=== PATIENT | female | born 1980 | race Caucasian/White ===

== ENCOUNTER 2019-06-27 18:12 | Emergency (ER) | payer MEDICAID ==
[~2019-06-27] VITALS: Ht 172.7 cm; Wt 113.6 kg
[2019-06-27 18:16] VITALS: BP 132/80
--- NOTE | 2019-06-27 18:28 | NUR ---
contact information: fela Taylor [phone] parents are patient's conservators, paperwork on chart
--- NOTE | 2019-06-27 18:30 | NUR ---
Received report and assumed pt care. Mother and ER MD at bedside.
[2019-06-27] MEDS ORDERED: LURA60TA2 PO (18:49)
--- NOTE | 2019-06-27 18:56 | NUR ---
Pt refused dinner tray. Will hold tray aside.
[2019-06-27] MEDS ORDERED: LORazepam 1 MG tablet PO ONE (19:00)
[2019-06-27] MEDS ORDERED: diphenhydrAMINE 25mg capsule PO ONE (19:00)
[2019-06-27] MEDS ORDERED: OLANZapine 2.5MG tablet PO SCH (19:00)
[2019-06-27] MEDS ORDERED: CITA20TA28 PO (19:01)
[2019-06-27] MEDS ORDERED: LORA-269 PO (19:02)
[2019-06-27 19:18] LABS: URINE HCG NEGATIVE (NEG)
[2019-06-27] MEDS ORDERED: LORazepam 0.5 MG tablet PO PRN (19:20)
[2019-06-27 19:27] LABS: URINE AMPHETAMINE SCREEN NEGATIVE (Neg); URINE BARBITUATE SCREEN NEGATIVE (Neg); URINE BENZODIAZEPINES SCREEN NEGATIVE (Neg); URINE CANNABINOID SCREEN NEGATIVE (Neg); URINE COCAINE SCREEN NEGATIVE (Neg); URINE METHADONE SCREEN NEGATIVE (Neg); URINE OPIATE SCREEN NEGATIVE (Neg); URINE PHENCYCLIDINE SCREEN NEGATIVE (Neg)
[2019-06-27 19:33] LABS: BASOPHILS % (AUTO) 0.1 % (0-1); EOSINOPHILS % (AUTO) 0.2 % (0-6); HEMATOCRIT 40.6 % (35.0-45.0); HEMOGLOBIN 13.3 g/dl (12.0-16.0); LYMPHOCYTES # (AUTO) 0.7 X10'3 (1.1-4.8); LYMPHOCYTES % (AUTO) 5.8 % (21-51); MEAN CORPUSCULAR HGB CONC 32.7 g/dL (33.0-36.5); MEAN CORPUSCULAR VOLUME 85.6 FL (78-98); MEAN PLATELET VOLUME 9.2 FL (7.4-10.4); MONOCYTES # (AUTO) 0.6 X10'3 (0-0.9); MONOCYTES % (AUTO) 4.6 % (2-12); NEUTROPHILS # (AUTO) 11.3 X10'3 (1.8-7.7); NEUTROPHILS % (AUTO) 89.3 % (42-75); PLATELET COUNT 323 X10'3 (140-440); RED BLOOD COUNT 4.74 X10'6 (4.20-5.60); RED CELL DISTRIBUTION WIDTH 15.1 % (11.5-14.5); WHITE BLOOD COUNT 12.7 X10'3 (4.5-11.0)
[2019-06-27 19:44] LABS: ALANINE AMINOTRANSFERASE 22 U/L (12-78); ALBUMIN/GLOBULIN RATIO 1.1 (1.1-1.5); ALKALINE PHOSPHATASE 86 IU/L (46-116); ANION GAP 7 (8-16); ASPARTATE AMINO TRANSFERASE 19 U/L (10-37); BILIRUBIN,TOTAL 0.3 MG/DL (0.1-1.0); BLOOD UREA NITROGEN 19 MG/DL (7-18); BUN/CREATININE RATIO 17.4 (6.6-38.0); CALCIUM 8.7 MG/DL (8.5-10.1); CHLORIDE 105 MMOL/L (99-107); CREATININE 1.09 MG/DL (0.40-0.90); GLUCOSE 127 MG/DL (70-104); POTASSIUM 3.9 MMOL/L (3.5-5.1); SODIUM 141 MMOL/L (135-145); TOTAL CARBON DIOXIDE 29.1 MMOL/L (24-32); TOTAL PROTEIN 7.5 G/DL (6.4-8.2); eGFR 56 ML/MIN
[2019-06-27 19:53] LABS: ETHANOL < 0.010 GM/DL (0.0-0.010)
--- NOTE | 2019-06-27 20:45 | NUR ---
Pt screaming out, "fucker", and "shut up" several times. Dr. Jimenez contacted, no new orders.
--- NOTE | 2019-06-27 20:46 | NUR ---
informed Dr. young that primary nurse is requesting B-52 for agitated patient. security at bedside.
[2019-06-27] MEDS ORDERED: lurasidone 60mg tablet PO SCH (21:00)
--- NOTE | 2019-06-27 21:45 | NUR ---
Pt resting quietly, respirations normal, no s/s of distress.
--- NOTE | 2019-06-27 22:45 | NUR ---
Pt resting quietly, respirations normal, no s/s of distress.
--- NOTE | 2019-06-28 00:10 | NUR ---
Pt woke up asking for her mom. Sitter attempted to explain that it is midnight and pt threw an empty cup at staff's head. and security notified, new orders.
[2019-06-28] MEDS ORDERED: LORazepam 1 MG tablet PO ONE (00:20)
[2019-06-28] MEDS ORDERED: haloperidol lactate 5mg/ml inj IM ONE ×2 (00:30→00:50)
[2019-06-28] MEDS ORDERED: diphenhydrAMINE 50 mg/ml inj IM ONE ×2 (00:30→00:50)
--- NOTE | 2019-06-28 03:15 | NUR ---
Pt screaming "shut up fuckers". Security at bedside. Medication administered.
--- NOTE | 2019-06-28 03:48 | NUR ---
Pt resting quietly, respirations normal, no s/s of distress.
--- NOTE | 2019-06-28 05:51 | NUR ---
Pt resting quietly, respirations normal, no s/s of distress.
--- NOTE | 2019-06-28 06:40 | NUR ---
SENT PACKET TO [facility]
[2019-06-28] MEDS ORDERED: haloperidol lactate 5mg/ml inj IM PRN (07:30)
[2019-06-28] MEDS ORDERED: citalopram 20mg tablet PO SCH (08:00)
--- NOTE | 2019-06-28 08:15 | NUR ---
Patient is seen ambulating to the bathroom accompanied by mother. Patient is currently pleasant and cooperative with care. She is currently on her period and a sanitary napkin and new underwear were provided.
--- NOTE | 2019-06-28 09:23 | NUR ---
Patient is observed in bed on left side, audibly snoring, mother remains at bedside. No distress observed.
--- NOTE | 2019-06-28 10:42 | NUR ---
Duy, mixer crane operator from [facility] states he spoke to Dr. Mitchell and he recommends starting olanzepine 5mg BID along with PRN Ativan. He states that the patient's autism in conjunction with Covid and isolating, the patient needs medication adjustment to deal with the anxiety associated with being inside.
--- NOTE | 2019-06-28 11:05 | NUR ---
Spoke to mother regarding suggestions for care from Dr. Mitchell. Patient's mother states that she is worried and thinks that there is "something wrong" with the patient as she has been increasingly more aggitated and violent in the last 5 days. Reassured mother that patient is currently in a safe place and that she will not be discharged unless it is safe for both the mother and the patient.
[2019-06-28] MEDS ORDERED: OLANZapine 2.5MG tablet PO ONE (11:20)
[2019-06-28] MEDS ORDERED: LORazepam 0.5 MG tablet PO PRN (11:25)
[2019-06-28] MEDS: diphenhydrAMINE 50 mg/ml inj IM PRN ×2 (11:50→12:50)
--- NOTE | 2019-06-28 12:00 | NUR ---
Patient is being violent and threatening staff and mother stating that she would like to leave with her mom. She charged at staff. notified.
[2019-06-28] MEDS ORDERED: LORazepam 2 mg/ml vial ONE (12:36)
[2019-06-28] MEDS ORDERED: haloperidol lactate 5mg/ml inj ONE (12:36)
--- NOTE | 2019-06-28 13:32 | NUR ---
Margarita [facility], states she will not be keeping this patient on a mental health hold
--- NOTE | 2019-06-28 15:29 | NUR ---
Patient is currently resting in bed peacefully in the supine position, audibly snoring. No distress observed.
--- NOTE | 2019-06-28 16:36 | NUR ---
Patient's mother came to see the patient. Patient is still resting in bed peacefully. Informed mom we will call her once patient wakes up.
--- NOTE | 2019-06-28 17:30 | NUR ---
Patient continues to resting in bed on right side. No distress observed.
== END 2019-06-28 19:27 | disposition home or self-care (01) ==
LOC: ER 18:13
DX: F41.9 Anxiety disorder, unspecified (principal); R45.6 Violent behavior; F32.9 Major depressive disorder, single episode, unspecified; Z79.899 Other long term (current) drug therapy
CPT/HCPCS: 36415; 80053; 80305; 80320; 81025; 84443; 85025; 96372; 99285; J1200; J1630; J2060; Q0163

== ENCOUNTER 2020-03-17 13:46 | Emergency (ER) | payer MEDICAID ==
[~2020-03-17] VITALS: Ht 172.7 cm; Wt 81.8 kg
[~2020-03-17 13:46] MED LIST: CITA20TA28 PO; LORA-269 PO; LURA60TA PO
--- NOTE | 2020-03-17 14:51 | NUR ---
SITTING OUTSIDE ROOM WHILE TECHS GO IN TO CHANGE PT INTO GREEN SCRUBS AND INVENTORY HER BELONGINGS. EVERYTHING REMOVED FROM THE ROOM
--- NOTE | 2020-03-17 14:55 | NUR ---
ROOM STRIPPED, PATIENT PUT INTO GREEN SCRUBS AND SOCKS BELONGINGS LOGGED AND LOCKED UP IN OVERFLOW BED 27 - LOCKER #6
[2020-03-17 15:21] LABS: BASOPHILS % (AUTO) 0.5 % (0-1); EOSINOPHILS # (AUTO) 0.1 X10'3 (0-0.9); EOSINOPHILS % (AUTO) 1.2 % (0-6); HEMATOCRIT 41.1 % (35.0-45.0); HEMOGLOBIN 13.6 g/dl (12.0-16.0); LYMPHOCYTES # (AUTO) 0.8 X10'3 (1.1-4.8); LYMPHOCYTES % (AUTO) 11.7 % (21-51); MEAN CORPUSCULAR HGB CONC 33.1 g/dL (33.0-36.5); MEAN CORPUSCULAR VOLUME 84.4 FL (78-98); MEAN PLATELET VOLUME 9.9 FL (7.4-10.4); MONOCYTES # (AUTO) 0.5 X10'3 (0-0.9); MONOCYTES % (AUTO) 6.7 % (2-12); NEUTROPHILS # (AUTO) 5.5 X10'3 (1.8-7.7); NEUTROPHILS % (AUTO) 79.9 % (42-75); PLATELET COUNT 256 X10'3 (140-440); RED BLOOD COUNT 4.87 X10'6 (4.20-5.60); RED CELL DISTRIBUTION WIDTH 15.5 % (11.5-14.5); WHITE BLOOD COUNT 6.9 X10'3 (4.5-11.0)
[2020-03-17] MEDS ORDERED: DIVA500T9 PO (15:31)
[2020-03-17] MEDS ORDERED: QUET100T33 PO (15:31)
[2020-03-17] MEDS ORDERED: LORA-269 PO (15:31)
[2020-03-17] MEDS ORDERED: QUET25TA34 PO (15:31)
[2020-03-17 15:36] LABS: ALANINE AMINOTRANSFERASE 34 U/L (12-78); ALBUMIN 3.7 G/DL (3.4-5.0); ALBUMIN/GLOBULIN RATIO 0.9 (1.1-1.5); ALKALINE PHOSPHATASE 63 IU/L (46-116); ANION GAP 12 (8-16); ASPARTATE AMINO TRANSFERASE 17 U/L (10-37); BILIRUBIN,TOTAL 0.3 MG/DL (0.1-1.0); BLOOD UREA NITROGEN 12 MG/DL (7-18); BUN/CREATININE RATIO 11.4 (6.6-38.0); CALCIUM 8.5 MG/DL (8.5-10.1); CHLORIDE 104 MMOL/L (99-107); CREATININE 1.05 MG/DL (0.40-0.90); ETHANOL < 0.010 GM/DL (0.0-0.010); GLUCOSE 131 MG/DL (70-104); POTASSIUM 3.3 MMOL/L (3.5-5.1); SODIUM 142 MMOL/L (135-145); TOTAL CARBON DIOXIDE 26.4 MMOL/L (24-32); TOTAL PROTEIN 7.6 G/DL (6.4-8.2); eGFR 58 ML/MIN
[2020-03-17] MEDS ORDERED: potassium Cl 20 mEq SR tablet PO ONE (16:25)
[2020-03-17] MEDS: LORazepam 1 MG tablet PO PRN (18:06)
--- NOTE | 2020-03-17 18:13 | NUR ---
PT GIVEN A GLASS OF WATER TO HELP WITH COLLECTING A URINE SPECIMEN. PT SITTING ON THE COMMODE AND THROWS HER WATER TO THE FLOOR SPLASHING ON THE RN. REMOVE COMMODE AND ADMIN ATIVAN AND KDUR. PT IS COOPERATIVE WITH TAKING HER MEDICATION WITH ENCOURAGEMENT FROM THE TECH.
[2020-03-17] MEDS: quetiapine 100mg tablet PO PRN (19:53)
[2020-03-17] MEDS: QUEtiapine 25mg tablet PO SCH (19:53)
[2020-03-17 21:01] LABS: CLARITY,URINE SLIGHTLY CLOUDY (Clear); COLOR,URINE YELLOW (Yellow); GLUCOSE, URINE NEGATIVE (Neg); KETONES,URINE >=80 mg/dl (Neg); LEUKOCYTE ESTERASE ,URINE MODERATE (Neg); NITRITES, URINE NEGATIVE (Neg); OCCULT BLOOD,URINE MODERATE (Neg); PROTEIN,URINE 30 mg/dl (Neg)
--- NOTE | 2020-03-17 21:07 | NUR ---
PT APPEARS TO BE MASTURBATING. SEVERAL ATTEMPTS AT REDIRECTION.
[2020-03-17 21:12] LABS: URINE AMPHETAMINE SCREEN NEGATIVE (Neg); URINE BARBITUATE SCREEN NEGATIVE (Neg); URINE BENZODIAZEPINES SCREEN NEGATIVE (Neg); URINE CANNABINOID SCREEN NEGATIVE (Neg); URINE COCAINE SCREEN NEGATIVE (Neg); URINE HCG NEGATIVE (NEG); URINE METHADONE SCREEN NEGATIVE (Neg); URINE OPIATE SCREEN NEGATIVE (Neg); URINE PHENCYCLIDINE SCREEN NEGATIVE (Neg)
[2020-03-17 21:18] LABS: UA COLLECTION TYPE VOIDED
[2020-03-17 21:19] LABS: WBC,URINE 30-50 /HPF (0-4)
[2020-03-17 21:20] LABS: BACTERIA,URINE FEW /HPF (Neg); MUCUS STRANDS FEW /LPF (Neg); SQUAMOUS EPITHELIAL CELL,UR MODERATE /LPF (FEW); WBC CLUMPS,URINE FEW /HPF (NEGATIVE)
--- NOTE | 2020-03-17 22:23 | NUR ---
PT RESTING IN BED, RESTING QUIETLY, NO S/S OF DISTRESS.
--- NOTE | 2020-03-17 23:46 | NUR ---
PT RESTING IN BED, RESTING QUIETLY, NO S/S OF DISTRESS.
--- NOTE | 2020-03-18 01:48 | NUR ---
PT RESTING IN BED, RESTING QUIETLY, NO S/S OF DISTRESS.
--- NOTE | 2020-03-18 02:22 | NUR ---
PATIENT'S PACKET WASSENT TO [facility] AT 0216.
--- NOTE | 2020-03-18 02:56 | NUR ---
PT RESTING IN BED, RESTING QUIETLY, NO S/S OF DISTRESS.
--- NOTE | 2020-03-18 04:37 | NUR ---
PT RESTING IN BED, RESTING QUIETLY, NO S/S OF DISTRESS.
--- NOTE | 2020-03-18 06:30 | NUR ---
PT MOVED FROM ED ROOM 14 TO ED OVERFLOW BED 23. PT CALM AND COOPERATIVE WITH STAFF. WILL CONT TO MONITOR.
[2020-03-18] MEDS: divalproex sod 250mg ER (24-hour) tablet PO SCH (08:00)
[2020-03-18] MEDS: QUEtiapine 25mg tablet PO SCH ×2 (08:00→20:32)
--- NOTE | 2020-03-18 08:00 | NUR ---
PT SITTING UP AND EATING BFAST. NO SIGNS OF DISTRESS OR DISCOMFORT NOTED. WILL CONT TO MONITOR.
--- NOTE | 2020-03-18 08:59 | NUR ---
PT RESTING COMFORTABLY IN BED WITH NO SIGNS OF DISTRESS OR DISCOMFORT NOTED. WILL CONT TO MONITOR.
--- NOTE | 2020-03-18 09:30 | NUR ---
ANGELICA FROM [facility] CALLING TO LET RN KNOW MED CLEARANCE IS MISSING ON PT. INFORMED DR. ALCAZAR, REQUESTING IT TO BE ADDED IN.
--- NOTE | 2020-03-18 09:45 | NUR ---
MED CLEARANCE SENT TO ANGELICA AT [facility]
--- NOTE | 2020-03-18 09:54 | NUR ---
PT RESTING COMFORTABLY; IS NOT DOING ANY SELF HARM OR SELF PLEASURING ACTS. WILL CONT TO MONITOR.
--- NOTE | 2020-03-18 11:09 | NUR ---
PT LAYING DOWN IN BED, RESTING WITH EYES CLOSED. BREATHING RATE IS NORMAL. NO SIGNS OF DISTRESS NOTED. WILL CONT TO MONITOR.
--- NOTE | 2020-03-18 12:21 | NUR ---
PT RESTING IN BED; IS NOT SHOWING SIGNS OF DISTRESS OR DISCOMFORT. WILL CONT TO MONITOR.
--- NOTE | 2020-03-18 13:05 | NUR ---
PT SITTING UP IN BED AND EATING LUNCH. DOES NOT LOOK TO BE IN ANY DISTRESS. WILL CONT TO MONITOR.
--- NOTE | 2020-03-18 15:09 | NUR ---
PT CONTINUES TO REST AND DOES NOT SEEM TO BE IN ANY DISTRESS OR DISCOMFORT. WILL CONT TO MONITOR.
--- NOTE | 2020-03-18 16:09 | NUR ---
PT CONTINUES TO REST CALMLY AND COOPERATIVELY IN BED. NO SIGNS OF DISTRESS NOTED. WILL CONT TO MONITOR.
--- NOTE | 2020-03-18 17:15 | NUR ---
PT IS RESTING IN BED AND HAS NO NEEDS AT THIS TIME. WILL CONTINUE TO MONITOR.
--- NOTE | 2020-03-18 19:00 | NUR ---
Pt resting quietly, respirations normal, no s/s of distress.
--- NOTE | 2020-03-18 20:00 | NUR ---
Pt resting quietly, respirations normal, no s/s of distress.
[2020-03-18] MEDS: quetiapine 100mg tablet PO PRN (20:32)
[2020-03-18] MEDS: LORazepam 1 MG tablet PO PRN (20:32)
--- NOTE | 2020-03-18 21:00 | NUR ---
Pt resting quietly, respirations normal, no s/s of distress.
--- NOTE | 2020-03-18 22:00 | NUR ---
Pt resting quietly, respirations normal, no s/s of distress.
--- NOTE | 2020-03-18 22:00 | NUR ---
Pt resting quietly, respirations normal, no s/s of distress.
--- NOTE | 2020-03-18 23:00 | NUR ---
Pt resting quietly, respirations normal, no s/s of distress.
--- NOTE | 2020-03-19 01:17 | NUR ---
Pt resting quietly, respirations normal, no s/s of distress.
[2020-03-19 06:06] VITALS: BP 115/71
--- NOTE | 2020-03-19 06:29 | NUR ---
Patient sleeping on her right side. No distress observed. Continue to monitor.
[2020-03-19] MEDS: QUEtiapine 25mg tablet PO SCH (08:44)
[2020-03-19] MEDS: divalproex sod 250mg ER (24-hour) tablet PO SCH (08:44)
== END 2020-03-19 14:49 | disposition home or self-care (01) ==
LOC: ER 13:46
DX: F91.9 Conduct disorder, unspecified (principal); F41.9 Anxiety disorder, unspecified; F32.9 Major depressive disorder, single episode, unspecified; Z79.899 Other long term (current) drug therapy
CPT/HCPCS: 36415; 71046; 80053; 80305; 80320; 81001; 81025; 85025; 87088; 99285

== ENCOUNTER 2021-05-14 14:30 | Emergency (ER) | payer MEDICAID ==
[~2021-05-14] VITALS: Ht 162.6 cm; Wt 65.9 kg
[~2021-05-14 14:30] MED LIST changes: -CITA20TA28 PO; +DIVA500T9 PO; -LURA60TA PO; +QUET100T34 PO; +QUET25TA36 PO
[2021-05-14] MEDS ORDERED: haloperidol lactate 5mg/ml inj IM ONE ×2 (16:05→17:00)
[2021-05-14] MEDS ORDERED: LORazepam 2 mg/ml vial IM ONE ×2 (16:05→17:00)
[2021-05-14] MEDS ORDERED: diphenhydrAMINE 50 mg/ml inj IM ONE (16:05)
[2021-05-14 16:59] LABS: BASOPHILS % (AUTO) 0.1 % (0-1); EOSINOPHILS % (AUTO) 0 % (0-6); HEMATOCRIT 39.4 % (35.0-45.0); LYMPHOCYTES # (AUTO) 0.6 X10'3 (1.1-4.8); LYMPHOCYTES % (AUTO) 5.1 % (21-51); MEAN CORPUSCULAR HEMOGLOBIN 29.2 PG (27.0-31.0); MEAN CORPUSCULAR VOLUME 88.4 FL (78-98); MEAN PLATELET VOLUME 9.1 FL (7.4-10.4); MONOCYTES # (AUTO) 0.7 X10'3 (0-0.9); MONOCYTES % (AUTO) 5.7 % (2-12); NEUTROPHILS # (AUTO) 11.4 X10'3 (1.8-7.7); NEUTROPHILS % (AUTO) 89.1 % (42-75); PLATELET COUNT 273 X10'3 (140-440); RED BLOOD COUNT 4.46 X10'6 (4.20-5.60); WHITE BLOOD COUNT 12.8 X10'3 (4.5-11.0)
--- NOTE | 2021-05-14 17:08 | NUR ---
PT WAS COOPERATIVE FOR LAB DRAW AND COVID SWAB. AFTERWARDS PT BECAME AGRESSIVE, PULLED THE COMPUTER KEYBOARD OFF THE STAND AND PROCEEDED TO THROUGH IT AGAINST THE GLASS DOORS AND BREAKING IT TO PIECES. DR FENG OBSERVED PT'S BEHAVIOR, NEW ORDERS FOR ADDITIONAL HALDOL AND BEHAVIORAL RESTRAINTS RECEIVED
[2021-05-14 17:16] LABS: ALANINE AMINOTRANSFERASE 19 U/L (12-78); ALBUMIN 3.6 G/DL (3.4-5.0); ALKALINE PHOSPHATASE 70 IU/L (46-116); ANION GAP 7 (8-16); ASPARTATE AMINO TRANSFERASE 15 U/L (10-37); BILIRUBIN,TOTAL 0.4 MG/DL (0.1-1.0); BLOOD UREA NITROGEN 17 MG/DL (7-18); BUN/CREATININE RATIO 18.1 (6.6-38.0); CALCIUM 8.8 MG/DL (8.5-10.1); CHLORIDE 107 MMOL/L (99-107); CREATININE 0.94 MG/DL (0.40-0.90); GLUCOSE 86 MG/DL (70-104); SODIUM 141 MMOL/L (135-145); TOTAL CARBON DIOXIDE 26.6 MMOL/L (24-32); TOTAL PROTEIN 7.1 G/DL (6.4-8.2); eGFR 66 ML/MIN
[2021-05-14 17:26] LABS: ETHANOL < 0.010 GM/DL (0.0-0.010)
--- NOTE | 2021-05-14 18:26 | NUR ---
PT TAKEN TO CT, RESTRAINTS IN PLACE, TECH ASSISTING. PT WILL HAVE 2 RESTRAINTS REMOVED UPON RETURN FROM CT
--- NOTE | 2021-05-14 18:52 | NUR ---
Assumed care Addendum: 05/14/21 at 1853 by [email or web address] Assumed care of patient from main Er. Pt answers Mona when asked her name but doesnt answer any other questions or respond when asked if she has any needs. Pt was given warm blankets and made comfortable and is resting in bed w her eyes closed. RR even and unlabored. Pt has bruising to her face and dried blood on her face on arrival to [facility]. CT results pending.
--- NOTE | 2021-05-14 18:58 | NUR ---
Pts restraints were removed upon arrival in EDOF.
--- NOTE | 2021-05-14 21:19 | NUR ---
Pt is laying in bed asleep rr even and unlabored
--- NOTE | 2021-05-14 22:34 | NUR ---
pt up to use the toilet, stares blankly at me and doesnt respond when asked questions. Pt cooperative following directions.
[2021-05-14 22:53] LABS: CLARITY,URINE CLOUDY (Clear); GLUCOSE, URINE NEGATIVE (Neg); KETONES,URINE 40 mg/dl (Neg); LEUKOCYTE ESTERASE ,URINE SMALL (Neg); NITRITES, URINE NEGATIVE (Neg); OCCULT BLOOD,URINE MODERATE (Neg); PROTEIN,URINE TRACE mg/dl (Neg); URINE HCG NEGATIVE (NEG); UROBILINOGEN,URINE 0.2 E.U/dL (0.2-1.0)
--- NOTE | 2021-05-14 22:54 | NUR ---
Pt sitting in bed eating.
[2021-05-14 22:55] LABS: UA COLLECTION TYPE CLN CATCH MIDSTREAM
[2021-05-14 22:56] LABS: COLOR,URINE DARK YELLOW (Yellow)
[2021-05-14 23:01] LABS: URINE AMPHETAMINE SCREEN NEGATIVE (Neg); URINE BARBITUATE SCREEN NEGATIVE (Neg); URINE BENZODIAZEPINES SCREEN NEGATIVE (Neg); URINE CANNABINOID SCREEN NEGATIVE (Neg); URINE COCAINE SCREEN NEGATIVE (Neg); URINE METHADONE SCREEN NEGATIVE (Neg); URINE OPIATE SCREEN NEGATIVE (Neg); URINE PHENCYCLIDINE SCREEN NEGATIVE (Neg)
[2021-05-14 23:08] LABS: BACTERIA,URINE 3+ /HPF (Neg); MUCUS STRANDS FEW /LPF (Neg); SQUAMOUS EPITHELIAL CELL,UR FEW /LPF (FEW); WBC,URINE TNTC /HPF (0-4)
[2021-05-14 23:09] LABS: CAL OXALATE CRYSTALS FEW /HPF (NEGATIVE)
--- NOTE | 2021-05-15 01:32 | NUR ---
Pt laying in bed sleeping appears to be resting comfortably.
--- NOTE | 2021-05-15 02:00 | NUR ---
PT IN BED SLEEPING. EVEN, UNLABORED BREATHING.
--- NOTE | 2021-05-15 05:08 | NUR ---
pt is sleeping rr 16 even and unlabored
--- NOTE | 2021-05-15 07:09 | NUR ---
pt appears to be sleeping. no s/s respiratory distress-equal and unlabored respirations.
--- NOTE | 2021-05-15 08:30 | NUR ---
pt sitting up in bed eating breakfast without incident or issue. pt refuses to speak with staff. when approached, pt looks at the speaker but does not engage in conversation or answer questions.
--- NOTE | 2021-05-15 08:42 | NUR ---
scmh spoke with family regarding inability to place pt in truck terminal manager care facility due to behaviors and known hx of combativeness. per scmh, family is hesitant to take pt back home to due pt combativeness towards herself and other family members.
--- NOTE | 2021-05-15 12:22 | NUR ---
pt sitting up eating lunch without issue.
--- NOTE | 2021-05-15 12:30 | NUR ---
limited general assessment completed due to pt refusing to allow staff to touch her. pt refusing to answer questions. completed as well as possible based off observations.
[2021-05-15] MEDS ORDERED: DIVA500T9 PO (12:58)
[2021-05-15] MEDS ORDERED: QUET-1 PO (12:58)
[2021-05-15] MEDS ORDERED: QUET25TA PO (12:58)
[2021-05-15] MEDS ORDERED: LORA-269 PO (12:59)
--- NOTE | 2021-05-15 13:00 | NUR ---
spoke with pt primary psychiatrist dr blackman who gave verbal review of pt current medications. med rec completed and updated.
[2021-05-15] MEDS ORDERED: QUEtiapine 25mg tablet PO PRN (13:15)
--- NOTE | 2021-05-15 13:26 | NUR ---
resting on back, no distress noted.
[2021-05-15] MEDS: divalproex sod 250mg ER (24-hour) tablet PO SCH (14:02)
--- NOTE | 2021-05-15 14:05 | NUR ---
pt took medication without issue. given juice at same time which seemed to help. pt then up to bathroom with encouragement, changed scrubs, and given warm wipes to clean her face with to remove some dried blood. pt was able to wipe off some dried blood but reports that it hurt to push/wipe. given remaining wipes for her to use later.
--- NOTE | 2021-05-15 15:52 | NUR ---
pt heard yelling to self and to others indirectly. po ativan pulled as a prn option and offered to pt with juice. pt refused and tipped/threw the side table towards this rn. security called. attempted to redirect pt as she repeatedly stated she wanted to go home. informed that proper behavior is required for consideration for discharge and not attacking self or others or throwing items. pt then threw the juice at this nurse and another juice out of the room. alisa de la cruz informed of pt behavior and verbal order received for ativan 2mg im, haldol 10mg im, and benadryl 50mg im. orders placed as received. pt rolled over on to side and allowed administration of im medications without issue. pt is now laying in bed awake without further behaviors.
[2021-05-15] MEDS ORDERED: haloperidol lactate 5mg/ml inj IM ONE (16:05)
[2021-05-15] MEDS ORDERED: LORazepam 2 mg/ml vial IM ONE (16:05)
[2021-05-15] MEDS ORDERED: diphenhydrAMINE 50 mg/ml inj IM ONE (16:05)
--- NOTE | 2021-05-15 17:34 | NUR ---
pt laying in bed without disturbances. appears to be sleeping. no s/s respiratory distress. respirations equal and unlabored
--- NOTE | 2021-05-15 19:00 | NUR ---
RECEIVED PATIENT ON THE UNIT ASLEEP BUT EASILY AROUSE. NO PHYSICAL COMPLAINT MADE. PATIENT IS BREATHING SPONTANOUSLY ON ROOM AIR. OBSERVATION ONGOING
[2021-05-15] MEDS: quetiapine 100mg tablet PO SCH (20:35)
--- NOTE | 2021-05-16 04:26 | NUR ---
Patient asleep but easily arouse. No obvious distress noted.observation ongoing.
--- NOTE | 2021-05-16 06:00 | NUR ---
PT. CARE ASSUMED FROM OFF GOING NURSE TERRI LEES. PT. VISIBLE LYING IN BED WITH EYES CLOSED RESTING QUIETLY. NOTED EVEN RISE AND FALL OF CHEST. WILL CONTINUE TO MONITOR FOR SAFETY.
[2021-05-16] MEDS: divalproex sod 250mg ER (24-hour) tablet PO SCH (08:10)
--- NOTE | 2021-05-16 08:14 | NUR ---
PT. SITTING ON THE EDGE OF BED EATING BREAKFAST.
--- NOTE | 2021-05-16 09:52 | NUR ---
THIS SUPERVISOR FISH BAIT PROCESSING SPOKE WITH KAYCEE DEL REAL (MOTHER) TO INFORM HER DAUGHTER'S DISCHARGE TO HOME TODAY. MOTHER STATES," I WAS TOLD PATIENT WASN'T COMING HOME DUE TO NOT HAVING A SAFETY PLAN IN PLACE". THIS SUPERVISOR FISH BAIT PROCESSING INFORMED THE MOTHER, THAT THE [facility] CLINICIAN AND DR. MORIN HAD SPOKEN THIS MORNING AND THE 5150 WAS RESCINDED ON 05/15/21. INFORMED THE MOTHER THAT PATIENT ISN'T CURRENTLY ON A HOLD AND HAS NO OTHER MEDICAL ISSUES FOR ADMISSION. MOTHER STATES SHE WILL CALL HER TEAM OF PEOPLE AND SOMEONE WILL CALL US BACK ,MOTHER THEN HUNG UP PHONE IN THIS SUPERVISOR FISH BAIT PROCESSING'S FACE.
--- NOTE | 2021-05-16 10:43 | NUR ---
SPOKE WITH POSSIBLE EXCEPTING FACILITY ([facility]) AT [facility]. PACKET FAXED TO [phone].
[2021-05-16] MEDS: LORazepam 1 MG tablet PO PRN ×2 (11:26→16:53)
--- NOTE | 2021-05-16 11:30 | NUR ---
PT. PRESENTS WITH INCREASED AGITATION YELLING OUT FOR PEOPLE TO SHUT UP. THIS GRADE SETTER OFFER ATIVAN 1 MG PO FOR INCREASED AGITATION. PT. REFUSED ORAL MEDICATION AND THREW HER JUICE BOX AT THIS GRADE SETTER. GRADE SETTER NOTIFIED CHARGE NURSE OF BX. AND REQUESTED IM MEDICATION FOR AGITATION. ORDER PLACED BY MD FOR ATIVAN 1MG, BENADRYL 25MG AND HALDOL 5 MG IM X1 DOSE.
[2021-05-16] MEDS ORDERED: haloperidol lactate 5mg/ml inj IM ONE ×2 (11:45→23:05)
[2021-05-16] MEDS ORDERED: LORazepam 2 mg/ml vial IM ONE ×2 (11:45→23:05)
[2021-05-16] MEDS ORDERED: diphenhydrAMINE 50 mg/ml inj IM ONE ×2 (11:45→23:05)
--- NOTE | 2021-05-16 12:25 | NUR ---
GRAIN DRIER OPERATOR NOTIFIED OF NEED FOR STANDBY ASSIST FOR MEDICATION ADMINISTRATION. PT. WAS COOPERATIVE WITH MEDICATION ADMINISTRATION. STAFF WILL CONTINUE TO MONITOR FOR SAFETY.
--- NOTE | 2021-05-16 13:05 | NUR ---
RECEIVED A CALL FROM [facility] TO OBTAIN MORE INFORMATION.
--- NOTE | 2021-05-16 13:45 | NUR ---
DR. GONSALES IN AT THIS TIME EXAMINE PATIENT NOSE. STATES PATIENT MIGHT HAVE AN OPEN FRACTURE. REQUEST STAFF TO CLEAN DRIED DRAINAGE FROM NOSE FOR BETTER EXAMINATION.
--- NOTE | 2021-05-16 14:50 | NUR ---
PT. NOSE CLEANED AND DRY DRAINAGE REMOVED FROM AREA. DR. WU IN AT THIS TIME TO EXAMINE PT. NOSE. WILL CONTINUE TO MONITOR FOR SAFETY.
[2021-05-16] MEDS ORDERED: amox tr/potassium clavulanate 875/125mg TAB PO ONE (14:55)
[2021-05-16] MEDS ORDERED: ondansetron 4mg rapidly disintigrating tab PO ONE ×2 (14:55→18:25)
[2021-05-16] MEDS ORDERED: TETanus/Pertussis (Acell)/Diphther VAC/PF (Tdap-Adult) 0.5ml syringe IMVAC ONE (14:55)
[2021-05-16] MEDS ORDERED: LIDOcaine/epinephrine/tetracaine TOPICAL sol 3 ML syringe TOP ONE (14:55)
--- NOTE | 2021-05-16 15:30 | NUR ---
LIDOCAINE SOLUTION APPLIED TO LACERATION ON NOSE, WILL NOTIFY DR. CONTRERAS IN 30 MINUTES FOR SUTURES TO BE PLACED.
--- NOTE | 2021-05-16 16:30 | NUR ---
PT. RECEIVED TDAP VACCINE IN LT. DELTOID .
[2021-05-16] MEDS ORDERED: ketamine 50 mg/ml 10ml vial IM ONE (18:25)
--- NOTE | 2021-05-16 19:45 | NUR ---
RECEIVED PATIENT ON THE UNIT IN NO OBVIOUS DISTRESS. NO PHYSICAL COMPLAINT MADE. PATIENT IS BREATHING SPONTANOUSLY ON ROOM AIR. BRUISES NOTED TO FACIAL AREA. PATIENT DENIES HAVING ANY SUICIDAL IDEATION OR HALLUCINATION AT THIS TIME.
[2021-05-16] MEDS: quetiapine 100mg tablet PO SCH (20:28)
--- NOTE | 2021-05-16 22:43 | NUR ---
PATIENT TRANSFER TO MAIN ED TO GET HER NOSE SUTURE. PATIENT WAS RESISTIVE, COMBATIVE WITH SECURITY. PATIENT WAS TRANSPORTED IN WHEELCHAIR.
--- NOTE | 2021-05-17 00:14 | NUR ---
PATIENT ARRIVED ON THE MAIN ED CALM AND COOPERATIVE.
--- NOTE | 2021-05-17 01:34 | NUR ---
Patient asleep in no obvious distress. observation ongoing
--- NOTE | 2021-05-17 05:07 | NUR ---
Patient asleep in no obvious distress. Observation ongoing
--- NOTE | 2021-05-17 06:00 | NUR ---
ASSUMED CARE FROM OFF GOING NURSE TERRI LEES. PT. VISIBLE ON THE UNIT RESTING QUIETLY WITH EYES CLOSED. NO DISTRESS NOTED.
[2021-05-17] MEDS: divalproex sod 250mg ER (24-hour) tablet PO SCH (08:00)
[2021-05-17] MEDS: amox tr/potassium clavulanate 500mg/125mg TAB PO SCH ×2 (08:30→17:46)
--- NOTE | 2021-05-17 09:50 | NUR ---
PACKET REFAXED TO [facility] WITH UPDATED INFORMATION ON SUTURE REMOVAL DATE. AWAITNG CALL BACK FROM FACILITY.
--- NOTE | 2021-05-17 10:35 | NUR ---
RECEIVED A CALL FROM ALBA LEES WITH [facility] REGARDING THE LACERATION TO THE PT. RIGHT HAND. THIS ANAESTHETIC TECHNICIAN INFORMED ALBA THAT LACERATION WAS NOT BLEEDING NOR HAD ANY DRAINAGE COMING FROM IT. RESTATED PER THE DOCTOR THAT LACERATION WAS OUTSIDE OF TIME FRAME FOR ANY SUTURES TO BE PLACED. PT. CURRENTLY ON ABX. AT THIS TIME. ALBA STATED SHE WILL REVIEW PATIENT CASE WITH FACILITY CLINICIANS AND WILL CALL BACK AFTERWARDS.
--- NOTE | 2021-05-17 11:29 | NUR ---
[facility] CLINICIAN AND PSYCH PA IN AT THIS TIME TO OBTAIN UPDATES IN REGARD TO PATIENT PLACEMENT STATUS. CLINICIAN STATES SHE IS STILL WAITNG TO HEAR FROM [facility] IN REGARDS TO ACCEPTANCE. CLINICIAN ALSO STATES IF NOT ACCEPTED AT [facility] THE PATIENT PACKET HAS BEEN SUBMITTED TO OTHER FACILITIES FOR REVIEW WELL. CLINICIAN AND PA SPOKE WITH [facility] DIRECTOR WELL TO UPDATE HIM ON PLACEMENT PLANNING. STAFF WAITNG CALL BACK FROM [facility].
--- NOTE | 2021-05-17 13:00 | NUR ---
PT. LYING IN BED ON HER RT.SIDE RESTING QUIETLY WITH EYES CLOSED. NO DISTRESS NOTED. STAFF WILL CONTINUE TO MONITOR FOR SAFETY.
[2021-05-17] MEDS ORDERED: quetiapine 100mg tablet PO PRN (16:30)
--- NOTE | 2021-05-17 17:21 | NUR ---
PT. AROUSE EASILY AND DRIFT BACK TO SLEEP. NOTED RISE AND FALL OF CHEST NO DISTRESS NOTED. STAFF WILL CONTINUE TO MONITOR FOR SAFETY.
--- NOTE | 2021-05-17 19:01 | NUR ---
RECEIVED PATIENT ON THE UNIT LYING IN BED. NO OBVIOUS DISTRESS. PATIENT IS BREATHING SPONTANOUSLY ON ROOM AIR. PATIENT IS ABIT ANXIOUS AND SPEAK MINIMAL. OBSERVATION ONGOING.
[2021-05-17] MEDS: quetiapine 100mg tablet PO SCH (20:23)
--- NOTE | 2021-05-18 02:50 | NUR ---
PATIENT ASLEEP IN NO OBVIOUS DISTRESS. OBSERVATION ONGOING
--- NOTE | 2021-05-18 05:58 | NUR ---
PATIENT ASLEEP BUT EASILY AROUSE. OBSERVATION ONGOING.
--- NOTE | 2021-05-18 06:00 | NUR ---
Patient received from nurse Terrell RN.
--- NOTE | 2021-05-18 06:00 | NUR ---
Patient received from YOANA Puente
[2021-05-18] MEDS: PALIPERIDONE 3 MG TAB.ER.24 PO SCH ×2 (08:00→09:15)
[2021-05-18] MEDS: divalproex sod 250mg ER (24-hour) tablet PO SCH (09:16)
[2021-05-18] MEDS: amox tr/potassium clavulanate 500mg/125mg TAB PO SCH ×2 (09:54→18:04)
--- NOTE | 2021-05-18 10:00 | NUR ---
Patient is resting in bed. Compliant with medication regimen. Voi Addendum: 05/18/21 at 1148 by [email or web address] Resting in bed. Voiced no complaints at this time.
--- NOTE | 2021-05-18 12:00 | NUR ---
Patient is sitting in bed eating lunch independently. Voiced no complaints at this time. Will continue to monitor and assist.
[2021-05-18] MEDS ORDERED: AMOX-580 PO (13:12)
--- NOTE | 2021-05-18 14:00 | NUR ---
Patient is sleeping in bed. Resp. even and non- labored. No s/s of discomfort at this time. Will continue to monior and assist as needed.
--- NOTE | 2021-05-18 16:00 | NUR ---
Patient is resting in bed quietly. Easy to rouse. No s/s of discomfort. Will continue to monitor and assist as needed.
--- NOTE | 2021-05-18 18:16 | NUR ---
Report given to YOANA Puente.
--- NOTE | 2021-05-18 18:34 | NUR ---
PATIENT RECEIVED ON THE UNIT IN NO OBVIOUS DISTRESS. NO PHYSICAL COMPLAINT MADE. PATIENT HAVING DINNER. PATIENT SPEAK MINIMAL. OBSERVATION ONGOING.
[2021-05-18] MEDS: quetiapine 100mg tablet PO SCH (20:20)
--- NOTE | 2021-05-19 02:40 | NUR ---
PATTIENT ASLEEP IN NO OBVIOUS DISTRESS. OBSERVATION ONGOING.
--- NOTE | 2021-05-19 06:00 | NUR ---
Patient received from YOANA Puente. Resting in bed. Resp. even and non-labored. No s/s of discomfort. Will continue to monitor and assist as needed.
--- NOTE | 2021-05-19 08:00 | NUR ---
Patient is sitting in bed eating breakfast. Coopertive with ordered blood draw. Medication compliant. Will continue to monitor and assist.
[2021-05-19] MEDS: divalproex sod 250mg ER (24-hour) tablet PO SCH (08:34)
[2021-05-19] MEDS: amox tr/potassium clavulanate 500mg/125mg TAB PO SCH ×2 (08:34→18:12)
[2021-05-19 08:47] LABS: BASOPHILS % (AUTO) 0.3 % (0-1); EOSINOPHILS # (AUTO) 0.1 X10'3 (0-0.9); EOSINOPHILS % (AUTO) 2.5 % (0-6); HEMATOCRIT 38.6 % (35.0-45.0); HEMOGLOBIN 12.7 g/dl (12.0-16.0); LYMPHOCYTES # (AUTO) 1.1 X10'3 (1.1-4.8); LYMPHOCYTES % (AUTO) 23.1 % (21-51); MEAN CORPUSCULAR HEMOGLOBIN 28.9 PG (27.0-31.0); MEAN CORPUSCULAR HGB CONC 32.9 g/dL (33.0-36.5); MEAN PLATELET VOLUME 9.5 FL (7.4-10.4); MONOCYTES # (AUTO) 0.3 X10'3 (0-0.9); MONOCYTES % (AUTO) 7.3 % (2-12); NEUTROPHILS % (AUTO) 66.8 % (42-75); PLATELET COUNT 251 X10'3 (140-440); RED BLOOD COUNT 4.38 X10'6 (4.20-5.60); RED CELL DISTRIBUTION WIDTH 14.7 % (11.5-14.5); WHITE BLOOD COUNT 4.6 X10'3 (4.5-11.0)
[2021-05-19 08:59] LABS: ALANINE AMINOTRANSFERASE 15 U/L (12-78); ALBUMIN/GLOBULIN RATIO 0.9 (1.1-1.5); ALKALINE PHOSPHATASE 57 IU/L (46-116); ANION GAP 2 (8-16); BILIRUBIN,TOTAL 0.4 MG/DL (0.1-1.0); BLOOD UREA NITROGEN 14 MG/DL (7-18); BUN/CREATININE RATIO 20.6 (6.6-38.0); CALCIUM 8.3 MG/DL (8.5-10.1); CHLORIDE 105 MMOL/L (99-107); CREATININE 0.68 MG/DL (0.40-0.90); GLUCOSE 83 MG/DL (70-104); POTASSIUM 4.1 MMOL/L (3.5-5.1); SODIUM 140 MMOL/L (135-145); TOTAL PROTEIN 6.4 G/DL (6.4-8.2); eGFR > 90 ML/MIN
[2021-05-19 09:16] LABS: ASPARTATE AMINO TRANSFERASE 11 U/L (10-37)
--- NOTE | 2021-05-19 10:00 | NUR ---
Resting in bed quietly.
--- NOTE | 2021-05-19 12:00 | NUR ---
Sitting in bed eating lunch. Voiced no concerns at this time.
--- NOTE | 2021-05-19 14:38 | NUR ---
Lying in bed awake. BP 100/56. No s/s discomfort. Will continue to monitor and assist as needed.
--- NOTE | 2021-05-19 16:17 | NUR ---
Resting in bed quietly on right side. No s/s of discomfort at this time.
--- NOTE | 2021-05-19 18:15 | NUR ---
SITTING IN BED EATING DINNER . NO DISTRESS OBSERVED.
[2021-05-19] MEDS: quetiapine 100mg tablet PO SCH (20:20)
--- NOTE | 2021-05-19 20:30 | NUR ---
Pt resting quietly in bed , pt med compliant, no distress noted.
--- NOTE | 2021-05-19 23:00 | NUR ---
Pt sleeping at this time, no distress noted.
--- NOTE | 2021-05-20 01:00 | NUR ---
Pt asleep, no distress noted.
--- NOTE | 2021-05-20 05:19 | NUR ---
Pt laying in bed quietly , no distress noted.
--- NOTE | 2021-05-20 06:50 | NUR ---
Pt is resting.
[2021-05-20] MEDS: PALIPERIDONE 3 MG TAB.ER.24 PO SCH (07:44)
[2021-05-20] MEDS: divalproex sod 250mg ER (24-hour) tablet PO SCH (07:44)
--- NOTE | 2021-05-20 07:46 | NUR ---
Pt is eating breakfast and she has taken her morning medications without difficulty.
[2021-05-20] MEDS: amox tr/potassium clavulanate 500mg/125mg TAB PO SCH ×2 (08:22→17:08)
--- NOTE | 2021-05-20 11:50 | NUR ---
Pt is awake and cleaning her face with bath wipes.
--- NOTE | 2021-05-20 12:02 | NUR ---
Spoke with pt's mother, Ruth. Ruth stated that Mona will not be returning home. She is refusing to accept her. They are actively trying to find placement at a few places. She will know more tomorrow (Friday) after her family independence case manager is back in the office. They are trying to place her at [facility].
--- NOTE | 2021-05-20 13:04 | NUR ---
Pt ambulated to the restroom. Pt has mild tremmors in B hands.
--- NOTE | 2021-05-20 16:00 | NUR ---
Pt is resting.
--- NOTE | 2021-05-20 19:35 | NUR ---
Pt is calm and cooperative, ate dinner tray is currently resting quietly in bed.
[2021-05-20] MEDS: quetiapine 100mg tablet PO SCH (19:51)
--- NOTE | 2021-05-20 22:49 | NUR ---
Pt wakes up often but appears to be in no distress.
--- NOTE | 2021-05-21 01:33 | NUR ---
Pt appears to be sleeping.
--- NOTE | 2021-05-21 04:36 | NUR ---
Pt appears to be sleeping.
--- NOTE | 2021-05-21 06:20 | NUR ---
Patient sleeping supine. No distress observed. Continue to monitor.
--- NOTE | 2021-05-21 08:17 | NUR ---
Patient eating breakfast. No distress observed. Continue to monitor.
[2021-05-21] MEDS: PALIPERIDONE 3 MG TAB.ER.24 PO SCH ×2 (09:05→09:07)
[2021-05-21] MEDS: divalproex sod 250mg ER (24-hour) tablet PO SCH (09:06)
--- NOTE | 2021-05-21 09:10 | NUR ---
Patient took her medication, 1 pill at a time. No disress observed. Continue to monitor.
[2021-05-21] MEDS: amox tr/potassium clavulanate 500mg/125mg TAB PO SCH ×2 (09:56→17:50)
--- NOTE | 2021-05-21 11:03 | NUR ---
Patient sleeping on right side. No distress observed. Continue to monitor.
--- NOTE | 2021-05-21 12:10 | NUR ---
Patient eating lunch. No distress observed. Continue to monitor.
--- NOTE | 2021-05-21 14:06 | NUR ---
Patient sleeping. No distress observed. Continue to monitor.
--- NOTE | 2021-05-21 15:50 | NUR ---
Contracted with [facility] to transport patient, 2 representatives speaking with patient and talking about driving patient to [facility]. One of the outside energy sales representatives spoke to RN and advised that [facility] needs to supply patient with 1 month's worth of meds. RN stated we need to know JAGUAR because a perinatal social worker needs to be working on that. Rodding Machine Tender verbalized understanding.
--- NOTE | 2021-05-21 17:38 | NUR ---
Patient sleeping on right side. No distress observed. Continue to monitor.
--- NOTE | 2021-05-21 19:12 | NUR ---
Note josep in EDM - 05/21/21 at 1914 by SHONNA Pt is sleeping in bed in obvious distress. Pt was able to convey that she was cold and blankets were brought for her. Pt reported she wasn't thirsty and acknowledged I'd be bringing her medications at 2100.
--- NOTE | 2021-05-21 19:14 | NUR ---
Pt is sleeping in no obvious distress. Pt able to communicate that she was cold. Had no wants or needs at this time Currently sleeping.
[2021-05-21] MEDS: quetiapine 100mg tablet PO SCH (20:11)
--- NOTE | 2021-05-21 20:59 | NUR ---
Pt took medications w/o complications, went back to sleep.
--- NOTE | 2021-05-21 23:02 | NUR ---
Pt got up to use bathroom one time, went back to bed. Helped pt rearrange blankets as pt is shaking and not able to communicate effectively. Pt stopped shaking once covered with blankets.
--- NOTE | 2021-05-22 01:00 | NUR ---
Pt sleeping on left side.
--- NOTE | 2021-05-22 05:46 | NUR ---
Pt lying in bed quietly staring at ceiling
--- NOTE | 2021-05-22 06:15 | NUR ---
RESTING IN BED. NO S/S OF DISCOMFORT AT THIS TIME. WILL CONTINUE TO MONITOR AND ASSIST.
--- NOTE | 2021-05-22 08:00 | NUR ---
SITTING UP IN BED EATING BREAKFAST. COMPLIANT WITH MEDICATIONS. WILL CONTINUE TO MONITOR AND ASSIST NEEDED.
[2021-05-22] MEDS: PALIPERIDONE 3 MG TAB.ER.24 PO SCH (08:35)
[2021-05-22] MEDS: divalproex sod 250mg ER (24-hour) tablet PO SCH (08:35)
[2021-05-22] MEDS: amox tr/potassium clavulanate 500mg/125mg TAB PO SCH ×2 (08:35→18:17)
--- NOTE | 2021-05-22 10:00 | NUR ---
RESTING IN BED QUIETLY. WILL CONTINUE TO MONITOR AND ASSIST NEEDED.
--- NOTE | 2021-05-22 12:25 | NUR ---
SITTING UP IN BED EATING LUNCH. NO ACUTE DISTRESS. WILL CONTINUE TO MONITOR AND ASSIST NEEDED.
--- NOTE | 2021-05-22 14:30 | NUR ---
RESTING IN BED QUIETLY. NO S/S OF DISCOMFORT. WILL CONTINUE TO MONITOR AND ASSIST NEEDED.
--- NOTE | 2021-05-22 16:35 | NUR ---
LYING IN BED AWAKE.VOICED NO COMPLAINTS. WILL CONTINUE TO MONITOR AND ASSIST NEEDED.
--- NOTE | 2021-05-22 18:45 | NUR ---
PATIENT RECEIVED ON THE UNIT IN NO OBVIOUS DISTRESS. NO PHYSICAL COMPLAINT MADE. PATIENT BREATHING SPONTANOUSLY ON ROOM AIR. PATIENT SPEAK MINIMAL TO BOWLING BALL WEIGHER AND PACKER.
[2021-05-22] MEDS: quetiapine 100mg tablet PO SCH (20:27)
--- NOTE | 2021-05-23 00:56 | NUR ---
PATIENT ASLEEP BUT EASILY AROUSE. NO OBVIOUS DISTRESS NOTED.
--- NOTE | 2021-05-23 05:43 | NUR ---
PATIENT ASLEEP BUT EASILY AROUSE. NO OBVIOUS DISTRESS NOTED
--- NOTE | 2021-05-23 06:00 | NUR ---
RECEIVED PATIENT RESTING IN BED QUIETLY. NO S/S OF DISCOMFORT. WILL CONTINUE TO MONITOR AND ASSIST NEEDED.
--- NOTE | 2021-05-23 08:00 | NUR ---
SITTING UP IN BED EATING BREAKFAST. COMPLIANT WITH MEDICATIONS. VOICED NO COMPLAINTS AT THIS TIME. WILL CONTINUE TO MONITIOR AND ASSIST.
[2021-05-23] MEDS: PALIPERIDONE 3 MG TAB.ER.24 PO SCH (08:35)
[2021-05-23] MEDS: amox tr/potassium clavulanate 500mg/125mg TAB PO SCH ×2 (08:35→17:56)
[2021-05-23] MEDS: divalproex sod 250mg ER (24-hour) tablet PO SCH (08:55)
--- NOTE | 2021-05-23 10:00 | NUR ---
RESTING IN BED QUIETLY. VOICED NO COMPLAINTS AT THIS TIME. WILL CONTINUE TO MONITOR AND ASSIST.
--- NOTE | 2021-05-23 12:00 | NUR ---
EATING LUNCH IN BED . VOICED NO COMPLAINTS AT THIS TIME. WILL CONTINUE TO MONITOR AND ASSIST.
--- NOTE | 2021-05-23 14:11 | NUR ---
TALKED TO OLGA AT [facility] AND SHE STATED THAT THE PATIENT WILL NOT BE TRANSFERRED UNTIL May. IN THE MEAN TIME, ANOTHER FACILITY FOR POSSIBLE PLACEMENT.
--- NOTE | 2021-05-23 14:31 | NUR ---
RESTING IN BED SUPINE. NO ACUTE DISTRESS NOTED.
--- NOTE | 2021-05-23 18:00 | NUR ---
Pt sitting in room quietly, no distress noted.
--- NOTE | 2021-05-23 21:00 | NUR ---
Pt laying in bed awake, no ditress or behaviors noted.
--- NOTE | 2021-05-24 | NUR ---
Pt asleep at this time, no distress noted.
--- NOTE | 2021-05-24 01:45 | NUR ---
Pt resting quietly in bed with eyes open, no ditress or behaviors noted.
--- NOTE | 2021-05-24 05:36 | NUR ---
Pt sleeping in bed at this time.
--- NOTE | 2021-05-24 06:00 | NUR ---
RECEIVED PATIENT RESTING IN BED.... WILL OBSERVE AND ASSIST NEEDED.
--- NOTE | 2021-05-24 08:00 | NUR ---
SITTING IN BED EATING BREAKFAST. COMPLIANT WITH MEDICATIONS. NO NEGATIVE BEHAVIORS NOTED.
[2021-05-24] MEDS: PALIPERIDONE 3 MG TAB.ER.24 PO SCH (08:45)
[2021-05-24] MEDS: divalproex sod 250mg ER (24-hour) tablet PO SCH (08:46)
[2021-05-24] MEDS: amox tr/potassium clavulanate 500mg/125mg TAB PO SCH ×2 (08:46→17:35)
--- NOTE | 2021-05-24 10:00 | NUR ---
SLEEPING IN BED. NO S/S OF DISCOMFORT. WILL CONTINUE TO OBSERVE AND ASSIST NEEDED.
--- NOTE | 2021-05-24 12:30 | NUR ---
[facility] F[facility] ADMINISTRATION IN AT THIS TIME TO [facility]. PATIENT FOR POSIBLE PLACEMENT UNTIL TRANSFER TO [facility] ON 05/31. PT. PRESENTS CALM AND COOPERATIVE AND INTERACTING APPRORIATELY WITH FACILITY ADMINISTRATORS. VAL PERRIN CALLED DOWN TO ANSWER ANY QUESTIONS RELATED TO MEDICATIONS AND POSSIBLY ADDING MEDICATION FOR PATIENT TREMORS. CLINICIANS/PA AND COMBINATION WORKER LEFT UNIT TO DISCUSS PATIENT CASE.
--- NOTE | 2021-05-24 12:30 | NUR ---
SITTING IN BED EATING LUNCH. CALM, COOPERTAIVE. WILL CONTINUE TO OBSERVE AND ASSIST.
--- NOTE | 2021-05-24 14:00 | NUR ---
RESTING IN BED QUIETLY. VOICED NO COMPLAINTS AT THIS TIME.
--- NOTE | 2021-05-24 18:55 | NUR ---
PT SITTING UP ON THE SIDE OF THE BED EATING DINNER AT THIS TIME, NO DISTRESS OR BEHAVIORS NOTED.
[2021-05-24] MEDS: propranolol 10mg tablet PO SCH (20:00)
[2021-05-24] MEDS: quetiapine 100mg tablet PO SCH (20:24)
--- NOTE | 2021-05-24 20:30 | NUR ---
Pt sitting up in bed, [facility] meds admin as ordered, propanolol held b/p parameters not met, no distress noted, pt calm and cooperative at this time.
--- NOTE | 2021-05-25 00:03 | NUR ---
Pt sitting up in bed watching activity on the unit, no distrerss or behaviors observed at this time.
--- NOTE | 2021-05-25 02:30 | NUR ---
Pt resting in bed awake, pt unable to sleep due to noise from other patient on the unit, no acute distress noted.
--- NOTE | 2021-05-25 06:00 | NUR ---
SITTING UP IN BED . VOICED NO COMPLAINTS AT THIS TIME. WILL OBSERVE AND ASSIST NEEDED.
[2021-05-25] MEDS: propranolol 10mg tablet PO SCH ×2 (08:00→20:51)
--- NOTE | 2021-05-25 08:00 | NUR ---
SITTING UP IN BED EATING BREAKFAST. CALM, COOPERATIVE. ABLE TO MAKE NEEDS KNOWN. NO NEGATIVE BEHAVIORS NOTED. COMPLIANT WITH MEDICATIONS. BP 97/58. PROPANOLOL NOT GIVEN DUE TO PERAMETERS. WILL CONTINUE TO OBSERVE AND ASSIST NEEDED.
[2021-05-25] MEDS: PALIPERIDONE 3 MG TAB.ER.24 PO SCH (08:37)
[2021-05-25] MEDS: amox tr/potassium clavulanate 500mg/125mg TAB PO SCH ×2 (08:37→17:40)
[2021-05-25] MEDS: divalproex sod 250mg ER (24-hour) tablet PO SCH (08:53)
--- NOTE | 2021-05-25 10:00 | NUR ---
LYING IN BED ON BACK SLEEPING. NO REQUESTS AT THIS TIME. WILL CONTINUE TO MONITOR AND ASSIST NEEDED.
--- NOTE | 2021-05-25 12:00 | NUR ---
SITTING UP IN BED EATING LUNCH. VOICED NO COMPLAINTS AT THIS TIME.
--- NOTE | 2021-05-25 14:00 | NUR ---
AWAKE, IN BED. NO ACUTE DISTRESS NOTED. WILL CONTINUE TO MONITOR.
--- NOTE | 2021-05-25 19:03 | NUR ---
PATIENT RECEIVED ON THE UNIT IN NO OBVIOUS DISTRESS. NO PHYSICAL COMPLAINT MADE. PATIENT DENIES HAVING ANY SUICIDAL/HOMICIDAL IDEATION OR HALLUCINATION AT THIS TIME.
[2021-05-25] MEDS: quetiapine 100mg tablet PO SCH ×2 (20:52→21:00)
--- NOTE | 2021-05-26 03:45 | NUR ---
PATIENT ASLEEP IN NO OBVIOUS DISTRESS. OBSERVATION ONGOING
--- NOTE | 2021-05-26 05:52 | NUR ---
PATIENT INTERMITTENTLY
--- NOTE | 2021-05-26 05:55 | NUR ---
PATIENT SLEPT INTERMITTENTLY THROUGHOUT THE NIGHT. OBSERVATION ONGOING.
--- NOTE | 2021-05-26 06:00 | NUR ---
PT. CARE ASSUMED FROM TERRI LEES. PT. LYING IN BED AWAKE NO DISTRESS NOTED . STAFF WILL CONTINUE TO MONITOR FOR SAFETY.
--- NOTE | 2021-05-26 07:15 | NUR ---
PT. NOTED TO BE ON HER MENSES. HYGIENE SUPPLIES AND NEW SCRUB SET PROVIDED. PT. INDEPENDENT OF ADL'S. STAFF CHANGED LINENS. STAFF WILL CONTINUE TO MONITOR.
[2021-05-26] MEDS: PALIPERIDONE 3 MG TAB.ER.24 PO SCH (08:33)
[2021-05-26] MEDS: amox tr/potassium clavulanate 500mg/125mg TAB PO SCH ×2 (08:33→17:50)
[2021-05-26] MEDS: divalproex sod 250mg ER (24-hour) tablet PO SCH (08:34)
[2021-05-26] MEDS: propranolol 10mg tablet PO SCH ×2 (08:34→20:48)
--- NOTE | 2021-05-26 13:45 | NUR ---
PT. VISIBLE ON THE UNIT LYING AWAKE IN BED .
--- NOTE | 2021-05-26 16:02 | NUR ---
VISIBLE SITTING ON THE EDGE OF BED.
--- NOTE | 2021-05-26 18:45 | NUR ---
Ptsitting at bedside eating her dinner without issue.
[2021-05-26] MEDS: quetiapine 100mg tablet PO SCH (21:33)
--- NOTE | 2021-05-26 21:35 | NUR ---
Pt took HS medications without issue. Seroquel 200 mg was given in 100 mg tablet form, slightly apart due to pulling a TID order and not the HS order. Pt got full 200 mg dose.
--- NOTE | 2021-05-26 21:44 | NUR ---
Pt OOB to use the restoom.
--- NOTE | 2021-05-27 01:58 | NUR ---
Pt sleeping on R side RR 16, even and unlabored
--- NOTE | 2021-05-27 03:00 | NUR ---
pT SLEEPING SOUNDLY, RESPIRATIONS WNL
--- NOTE | 2021-05-27 05:30 | NUR ---
Pt got up and sat in bed responding to internal stimuli. She brett at RN and says "nice outfit" . RN asks if she would like a warm blanket, she says yes, blanket given. Pt sits up laughing to herself quietly
--- NOTE | 2021-05-27 07:00 | NUR ---
Pt calmly sitting up in bed. Pt didn't respond when race and sports book writer greeted her.
[2021-05-27] MEDS: propranolol 10mg tablet PO SCH ×2 (08:00→20:49)
[2021-05-27] MEDS: PALIPERIDONE 3 MG TAB.ER.24 PO SCH (08:17)
[2021-05-27] MEDS: amox tr/potassium clavulanate 500mg/125mg TAB PO SCH ×2 (08:17→18:17)
[2021-05-27] MEDS: divalproex sod 250mg ER (24-hour) tablet PO SCH (08:18)
--- NOTE | 2021-05-27 09:01 | NUR ---
Pt sitting quietly in bed. Pt ate 100% of breakfast. Pt was compliant with physical assessment, doesn't answer questions regarding mental health. Pt appeared she was closed, but said "no" to a warm blanket.
--- NOTE | 2021-05-27 11:04 | NUR ---
Pt awake sitting on her bed. Stem Mounter asked is she wanted to color, caption writer or read a book, pt said "no." Asked for some water.
--- NOTE | 2021-05-27 13:00 | NUR ---
Pt awake finished 100% of her lunch. Pt remains calm, follows direction as needed. Pt on her menstral cycle, was given appropriate hygiene items. Pt declined any assistance from senior technical writer.
--- NOTE | 2021-05-27 15:05 | NUR ---
Pt lying in bed awake, no behaviors to report.
--- NOTE | 2021-05-27 17:33 | NUR ---
Pt cooperative with evening vitals.
--- NOTE | 2021-05-27 18:33 | NUR ---
Assumed care of patient from YOANA Bowman. Patient eating dinner.
--- NOTE | 2021-05-27 19:24 | NUR ---
Patient resting on the side of her bed. No distress noted.
[2021-05-27] MEDS: quetiapine 100mg tablet PO SCH (20:49)
--- NOTE | 2021-05-27 21:00 | NUR ---
Patient has laid down, and is trying to sleep. No distress noted.
--- NOTE | 2021-05-27 23:31 | NUR ---
Patient calmly lying in bed. Denies needs and is in no apparent distress.
--- NOTE | 2021-05-28 03:48 | NUR ---
Patient sleeping supine. No s/sx of distress noted.
--- NOTE | 2021-05-28 05:03 | NUR ---
Patient continues sleeping supine. No s/sx of distress noted.
--- NOTE | 2021-05-28 07:04 | NUR ---
Pt awake sitting on side of bed. Pt did not respond to underwriter mortgage loan when greeted, just stared.
[2021-05-28] MEDS: propranolol 10mg tablet PO SCH ×2 (08:03→20:45)
[2021-05-28] MEDS: PALIPERIDONE 3 MG TAB.ER.24 PO SCH (08:03)
[2021-05-28] MEDS: amox tr/potassium clavulanate 500mg/125mg TAB PO SCH ×2 (08:03→17:47)
[2021-05-28] MEDS: divalproex sod 250mg ER (24-hour) tablet PO SCH (08:03)
--- NOTE | 2021-05-28 08:13 | NUR ---
Pt sitting on bedside eating breakfast. Pt was compliant with medication, taking one pill at a time. Per report pt only slept a couple hours last night and the night before. Noted pt earlier sitting in bed talking to herself. Pt doesn't answer any questions, appears internally preoccupied. Will continue to monitor. Pt was compliant with physical assessment.
--- NOTE | 2021-05-28 09:00 | NUR ---
Pt awake sitting on side of bed, when telegraphic typewriter operator chief approached pt asked for "underware." Under garments and a kotex pad was given to patient. when pt was in bathroom, linens were changed. Pt continues to appear fatigued and tense. Will contiue to monitor.
--- NOTE | 2021-05-28 11:00 | NUR ---
Pt sitting on bed talking to herself. Jewel Bearing Maker addressed pt's needs warm blanket, snack, water. Pt said "no."
--- NOTE | 2021-05-28 13:00 | NUR ---
Pt finsihed 100% of her lunch, sitting at bedside talking to herself.
--- NOTE | 2021-05-28 15:15 | NUR ---
Pt sleeping soundly, audible breathing noises noted. No restless movements.
--- NOTE | 2021-05-28 16:42 | NUR ---
Pt took about a 2 hour nap. Pt is now awake sitting on edge of be laughing to herself.
[2021-05-28] MEDS: quetiapine 100mg tablet PO SCH (20:45)
--- NOTE | 2021-05-28 22:11 | NUR ---
Pt has been quiet all shift. One word answers to questions. Took medications without problems.
[2021-05-29] MEDS: LORazepam 1 MG tablet PO PRN (01:26)
--- NOTE | 2021-05-29 01:33 | NUR ---
Pt sitting up in bed rocking. Pt unable to verbalize how she feels but exibiting behavioral indications of anxiety. Given PRN Ativan per order.
--- NOTE | 2021-05-29 04:00 | NUR ---
Pt sleeping resp even and unlabored at this time. Pt was awake for some period of time after given Ativan declined any other medications. Waved hand in a motion like go away.
--- NOTE | 2021-05-29 06:30 | NUR ---
PT. CARE ASSUMED FROM NATALYA LEES. PT. VISIBLE ON THE UNIT LYING IN BED AWAKE. STAFF WILL CONTINUE TO MONITOR FOR SAFETY.
--- NOTE | 2021-05-29 09:00 | NUR ---
PT. AAO X1-2 THIS SHIFT DENIES ANY CURRENT SI/HI OR A/V HALLUCINATIONS. PT. MEDICATION COMPLIANT WITHOUT ANY PRN'S. PT. PRESENTS CALM AND COOPERATIVE WITH MORNING ASSESSMENT. HOBBING PRESS OPERATOR REPORTED NO ISSUES. VISIBLE ON THE UNIT SITTING IN BED. STAFF WILL CONTINUE TO MONITOR FOR SAFETY.
[2021-05-29] MEDS: propranolol 10mg tablet PO SCH ×2 (09:02→20:50)
[2021-05-29] MEDS: PALIPERIDONE 3 MG TAB.ER.24 PO SCH (09:02)
[2021-05-29] MEDS: divalproex sod 250mg ER (24-hour) tablet PO SCH (09:02)
[2021-05-29] MEDS: amox tr/potassium clavulanate 500mg/125mg TAB PO SCH ×2 (09:03→17:30)
--- NOTE | 2021-05-29 15:28 | NUR ---
PT. VISIBLE ON THE UNIT SITTING ON THE EDGE OF BED. NO DISTRESS NOTED. STAFF WILL CONTINUE TO MONITOR FOR SAFETY.
--- NOTE | 2021-05-29 17:10 | NUR ---
PATIENT RECEIVED ON THE UNIT IN NO OBVIOUS DISTRESS. NO PHYSICAL COMPLAINT MADE. PATIENT IS BREATHING SPONTANOUSLY ON ROOM AIR. PATIENT SPEAK MINIMAL TO CNC MANUFACTURING ENGINEER.
[2021-05-29] MEDS: quetiapine 100mg tablet PO SCH (20:50)
--- NOTE | 2021-05-30 05:09 | NUR ---
PATIENT SLEPT THROUGH OUT THE NIGHT. OBSERVATION ONGOING.
--- NOTE | 2021-05-30 06:30 | NUR ---
PT. CARE ASSUMED FROM OFF GOING NURSE TERRI LEES. PT. VISIBLE ON THE UNIT RESTING QUIETLY WITH EYES CLOSED NO DISTRESS NOTED.
--- NOTE | 2021-05-30 08:30 | NUR ---
YARIEL- CLINICIAN WITH [facility] IN VISITING PATIENT. YARIEL BROUGHT PATIENT COLORING BOOKS AND ACTIVITIES FOR PATIENT TO USE DURING HER TRIP TOMORROW. PT. SCHEDULED FOR D/C TO [facility] ON 05/31.
[2021-05-30] MEDS: divalproex sod 250mg ER (24-hour) tablet PO SCH (09:09)
[2021-05-30] MEDS: propranolol 10mg tablet PO SCH ×2 (09:09→20:48)
[2021-05-30] MEDS: PALIPERIDONE 3 MG TAB.ER.24 PO SCH (09:09)
[2021-05-30] MEDS: amox tr/potassium clavulanate 500mg/125mg TAB PO SCH (09:09)
--- NOTE | 2021-05-30 09:30 | NUR ---
RECEIVED CALL FROM [facility] PICK-UP TIME SCHEDULED FOR 0700 AM FOR TRANSPORT TO [facility].
--- NOTE | 2021-05-30 11:31 | NUR ---
PT. CALM AND COOPERATIVE WITH MORNING ASSESSMENT. DENIES ANY CURRENT SI/HI OR A/V HALLUCINATIONS. MEDICATION COMPLIANT WITHOUT ANY PRN'S GIVEN. DENIES ANY OTHER COMPLAINTS AT THIS TIME. STAFF WILL CONTINUE TO MONITOR FOR SAFETY.
--- NOTE | 2021-05-30 14:51 | NUR ---
PT. VISIBLE LYING IN BED AWAKE NO SIGNS OF DISTRESS NOTED.
--- NOTE | 2021-05-30 19:56 | NUR ---
PATIENT RECEIVED ON THE UNIT IN NO OBVIOUS DISTRESS. NO PHYSICAL COMPLAINT MADE. PATIENT IS BREATHING SPONTANOUSLY. PATIENT SPEAK WITH DATA ANALYST ETL DEVELOPER MINIMAL.OBSERVATION ONGOING .
[2021-05-30] MEDS: quetiapine 100mg tablet PO SCH (20:48)
--- NOTE | 2021-05-31 05:52 | NUR ---
Patient slept through out the night. No obvious distress noted. observation ongoing.
--- NOTE | 2021-05-31 06:27 | NUR ---
Patient discharge from unit . Patient left with Transporter to [facility]
[2021-05-31 06:28] VITALS: BP 120/76
== END 2021-05-31 06:33 ==
LOC: ER 14:31
DX: S02.2XXA Fracture of nasal bones, initial encounter for closed fracture (principal); S09.90XA Unspecified injury of head, initial encounter; S00.83XA Contusion of other part of head, initial encounter; Z20.822 Contact with and (suspected) exposure to COVID-19; F91.8 Other conduct disorders; F41.9 Anxiety disorder, unspecified; F32.A Depression, unspecified; Z79.899 Other long term (current) drug therapy; X58.XXXA Exposure to other specified factors, initial encounter; Y93.89 Activity, other specified; Y92.89 Other specified places as the place of occurrence of the external cause; Y99.8 Other external cause status
CPT/HCPCS: 36415; 70450; 70486; 80053; 80305; 80320; 81001; 81025; 83605; 84145; 84443; 85025; 87088; 87635; 90471; 90715; 96372; 99291; C9803; J1200; J1630; J2060